=== PATIENT | male | born 1965 | race American Indian/Alaskan Native ===

== ENCOUNTER 2017-03-06 11:15 | Outpatient (CLI) | payer OTHER ==
[2017-03-06 11:46] LABS: Basophils % (Auto) 0.3 % (0.0-1.8); Eosinophils % (Auto) 1.2 % (0.0-4.3); Hematocrit 38.3 % (35.5-45.6); Hemoglobin 12.8 gm/dl (11.8-15.2); Mean Corpuscular HGB Conc 33 % (32-34); Mean Corpuscular Hemoglobin 29 pg (28-32); Mean Corpuscular Volume 86 fl (84-94); Platelet Count 262 K/mm3 (140-440); Red Blood Count 4.44 M/mm3 (3.65-5.03); Red Cell Distribution Width 14.1 % (13.2-15.2); White Blood Count 8.1 K/mm3 (4.5-11.0)
[2017-03-06 12:04] LABS: Albumin 4.4 g/dL (3.9-5); BUN/Creatinine Ratio 20.21; Calcium 10.7 mg/dL (8.4-10.2); Chloride 97.6 mmol/L (98-107); Phosphorous 4.3 mg/dL (2.5-4.5); Potassium 4.1 mmol/L (3.6-5.0)
== END 2017-03-06 11:16 | disposition home or self-care (01) ==
LOC: LAB 11:15
PROVIDERS: ATTEND Internal Medicine
DX: I12.9 Hypertensive chronic kidney disease with stage 1 through stage 4 chronic kidney disease, or unspecified chronic kidney disease (principal); N18.3 Chronic kidney disease, stage 3 (moderate); E78.4 Other hyperlipidemia; E83.52 Hypercalcemia; M10.9 Gout, unspecified; G47.37 Central sleep apnea in conditions classified elsewhere; Z94.0 Kidney transplant status
CPT/HCPCS: 36415; 80048; 82040; 84100; 85025

== ENCOUNTER 2019-01-23 06:14 | Day surgery (SDC) | payer OTHER ==
[~2019-01-23 06:14] MED LIST: ANCEF/STERILE WATER 2 GM/20 ML 2 GM/20 ML SYRINGE IV NR; NACL 0.9% 1000 ML 1,000 ML IV SCH
[2019-01-23 07:16] LABS: Basophils # (Auto) 0.1 K/mm3 (0.0-0.1); Basophils % (Auto) 0.9 % (0.0-1.8); Eosinophils # (Auto) 0.2 K/mm3 (0.0-0.4); Eosinophils % (Auto) 2.4 % (0.0-4.3); Hematocrit 37.3 % (35.5-45.6); Hemoglobin 12.6 gm/dl (11.8-15.2); Lymphocytes # (Auto) 1.7 K/mm3 (1.2-5.4); Lymphocytes % (Auto) 17.2 % (13.4-35.0); Mean Corpuscular HGB Conc 34 % (32-34); Mean Corpuscular Volume 87 fl (84-94); Monocytes % (Auto) 9.8 % (0.0-7.3); Platelet Count 236 K/mm3 (140-440); Red Blood Count 4.27 M/mm3 (3.65-5.03); Red Cell Distribution Width 14.1 % (13.2-15.2)
[2019-01-23] MEDS ORDERED: SUBLIMAZE ONE ×2 (07:24→08:42)
[2019-01-23] MEDS ORDERED: DIPRIVAN 10 MG/ML IV ONE (07:24)
[2019-01-23] MEDS ORDERED: MARCAINE 0.5% INFILTRATI ONE (07:25)
[2019-01-23] MEDS ORDERED: XYLOCAINE 1%/ EPI 1:100,000 INFILTRATI ONE ×2 (07:25→08:30)
[2019-01-23] MEDS ORDERED: SODIUM BICARBONATE ONE (07:26)
[2019-01-23] MEDS ORDERED: NACL 0.9% 500 ML 500 ML ONE (07:26)
[2019-01-23] MEDS ORDERED: HEPARIN 10,000 UNITS/10 ML ONE (07:27)
[2019-01-23 07:28] LABS: Calcium 10.2 mg/dL (8.4-10.2)
[2019-01-23] MEDS ORDERED: SUBLIMAZE IV PRN (07:30)
[2019-01-23] MEDS ORDERED: ZOFRAN IV PRN (07:30)
--- NOTE | 2019-01-23 07:31 | Anesthesia Day of Surgery ---
Anesthesia Day of Surgery - Day of Surgery Patient Examined: Yes Patient H&P Reviewed: Yes Patient is NPO: Yes Beta Blockers: Yes
[2019-01-23] MEDS ORDERED: ROBINUL ONE (07:35)
[2019-01-23] MEDS ORDERED: XYLOCAINE MPF 2% ONE (07:35)
[2019-01-23] MEDS ORDERED: QUELICIN ONE (07:35)
[2019-01-23] MEDS ORDERED: DECADRON ONE (07:35)
--- NOTE | 2019-01-23 07:35 | Anesthesia Consultation ---
Anesthesia Consult and Med Hx Date of service: 01/23/19 - Airway Anesthetic Teeth Evaluation: Chipped, Caps ROM Head & Neck: Adequate Mental/Hyoid Distance: Adequate Mallampati Class: Class II Intubation Access Assessment: Good - Pre-Operative Health Status ASA Pre-Surgery Classification: ASA3 Proposed Anesthetic Plan: General - Pulmonary Hx Sleep Apnea: Yes - Cardiovascular System Hx Hypertension: Yes - Central Nervous System Hx Psychiatric Problems: No - Gastrointestinal Hx Gastroesophageal Reflux Disease: Yes - Endocrine Hx Renal Disease: Yes (s/p Kidney TX; Last HD yesterday) Hx End Stage Renal Disease: Yes Hx 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
[2019-01-23] MEDS ORDERED: LOPRESSOR PO SCH (08:00)
[2019-01-23] MEDS ORDERED: NACL 0.9% 250ML IV ONE (08:30)
[2019-01-23] MEDS ORDERED: HEPARIN 10,000 UNITS/10 ML IV ONE (08:30)
[2019-01-23] MEDS ORDERED: SODIUM BICARBONATE IV ONE (08:30)
[2019-01-23] MEDS ORDERED: NACL 0.9% IR ONE (08:30)
--- NOTE | 2019-01-23 09:58 | Operative Report ---
Operative Report Operative Report: Date of procedure: 01/23/2019 Pre-operative diagnosis: End-stage renal disease Post-operative diagnosis: Same Procedure name(s): Creation of brachiocephalic AV fistula right arm Surgeon: Car Robbins MD Finish Repairer: None Anesthesia: Gen. EBL: Minimal Specimen(s): None Complications: None Findings: Good-quality cephalic vein excellent thrill and bruit in fistula. Palpable radial pulse post completion. Procedure: With the right arm extended the entire extremity was then prepped and draped using standard sterile technique. I then made a transverse l incision overlying the confluence cephalic vein in the volar aspect of proximal forearm and carried into the subcutaneous tissue. The cephalic vein was identified and mobilized. The vessel was considered adequate for fistula creation. Once the vein was completely mobilized and marked for rotation I then mobilized distal brachial artery at the trifurcation isolating the radial and ulnar branches with Vesseloops. The vessel was then controlled using a combination of vessel loops and DeBakey clamps and a longitudinal arteriotomy was then made over the extreme distal brachial artery. The distal end of the transected vein was then opened and an end-to-side anastomosis was then created between the 2 vessels using 6-0 Prolene suture in running technique. Prior to completion of the suture line antegrade and retrograde flushing was performed. The suture line was then completed and flow was reestablished initially into the fistula and subsequently released of the distal forearm vessels. Palpable radial pulse was documented. Strong thrill and bruit was felt in the fistula. Hemostasis was adequate. The incision was then blocked with Marcaine 0.5% plain and then closed in layers using 3-0 Vicryl subcutaneous 4-0 Monocryl subcuticular. Skin was then sealed with Dermabond equivalent patient was then returned to the supine position and then to the recovery in stable condition having tolerated the procedure well. Sponge and needle counts were correct.
--- NOTE | 2019-01-23 10:03 | Short Stay Summary ---
Short Stay Documentation Date of service: 01/23/19 Narrative H&P: Patient admitted to the operative suite for outpatient creation of a right arm AV fistula for future hemodialysis access - History H&P: obtained from office - Allergies and Medications Current Medications: Allergies No Known Allergies Allergy (Verified 01/22/19 17:02) Home Medications Medication Instructions Recorded Confirmed Last Taken Type Acetaminophen/Codeine [Tylenol 1 tab PO Q6H PRN 01/23/19 01/23/19 Unknown History /Codeine # 3 tab] Allopurinol [Zyloprim] 100 mg PO DAILY 01/23/19 01/23/19 01/22/19 09:00 History Aspirin BABY CHEW TAB 81 mg PO DAILY 01/23/19 01/23/19 01/22/19 10:00 History AtorvaSTATin 40 mg PO DAILY 01/23/19 01/23/19 01/22/19 10:00 History Clonidine HCl 0.1 mg PO DAILY 01/23/19 01/23/19 01/23/19 07:30 History Furosemide 80 mg PO DAILY 01/23/19 01/23/19 01/22/19 07:30 History Humalog 100 UNITS/ML Kwikpen 24 units SUB-Q TIDWM 01/23/19 01/23/19 01/22/19 18:00 History Insulin Detemir [Levemir] 70 unit SQ HS 01/23/19 01/23/19 Unknown History Loratadine 10 mg PO DAILY 01/23/19 01/23/19 01/22/19 10:00 History Metoprolol Xl [Metoprolol 50 mg PO DAILY 01/23/19 01/23/19 01/23/19 07:30 History SUCCINATE ER TAB] Aopmy-Nrantxt-Givhxmyf Tablet 1 tab PO DAILY 01/23/19 01/23/19 01/22/19 10:00 History Mycophenolate Mofetil 500 mg PO BID 01/23/19 01/23/19 01/23/19 07:30 History Sensipar 30 mg PO DAILY 01/23/19 01/23/19 01/22/19 10:00 History Sevelamer HCl 800 mg PO AC 01/23/19 01/23/19 01/22/19 17:00 History Sildenafil 20 mg PO PRN 01/23/19 01/23/19 Unknown History amLODIPine [Norvasc] 10 mg PO DAILY 01/23/19 01/23/19 01/22/19 09:00 History predniSONE [Deltasone] 5 mg PO DAILY 01/23/19 01/23/19 01/23/19 07:30 History Active Medications Fentanyl (Sublimaze) 50 mcg IV Q5MIN PRN PRN Reason: Pain , Severe (7-10) Stop: 01/23/19 20:00 Sodium Chloride (Nacl 0.9% 1000 Ml) 1,000 mls @ 42 mls/hr IV DIRECT ANDRIY Last Admin: 01/23/19 07:35 Dose: 42 mls/hr Documented by: Cefazolin Sodium (Ancef/Sterile Water 2 Gm/20 Ml) 2 gm in 20 mls @ 80 mls/hr IV PREOP NR; Protocol Stop: 01/23/19 23:05 Metoprolol Tartrate (Lopressor) 50 mg PO QDAY [facility] Last Admin: 01/23/19 07:40 Dose: 50 mg Documented by: Ondansetron HCl (Zofran) 4 mg IV ONCE PRN PRN Reason: Nausea And Vomiting Stop: 01/23/19 16:00 - Brief post op/procedure progress note Date of procedure: 01/23/19 Procedure: Pre-operative diagnosis: End-stage renal disease Post-operative diagnosis: Same Procedure name(s): Creation of brachiocephalic AV fistula right arm Surgeon: Car Robbins MD Crusher: None Anesthesia: Gen. EBL: Minimal Specimen(s): None Complications: None Findings: Good-quality cephalic vein excellent thrill and bruit in fistula. Palpable radial pulse post completion. Procedure: With the right arm extended the entire extremity was then prepped and draped using standard sterile technique. I then made a transverse l incision overlying the confluence cephalic vein in the volar aspect of proximal forearm and carried into the subcutaneous tissue. The cephalic vein was identified and mobilized. The vessel was considered adequate for fistula creation. Once the vein was completely mobilized and marked for rotation I then mobilized distal brachial artery at the trifurcation isolating the radial and ulnar branches with Vesseloops. The vessel was then controlled using a combination of vessel loops and DeBakey clamps and a longitudinal arteriotomy was then made over the extreme distal brachial artery. The distal end of the transected vein was then opened and an end-to-side anastomosis was then created between the 2 vessels using 6-0 Prolene suture in running technique. Prior to completion of the suture line antegrade and retrograde flushing was performed. The suture line was then completed and flow was reestablished initially into the fistula and subsequently released of the distal forearm vessels. Palpable radial pulse was documented. Strong thrill and bruit was felt in the fistula. Hemostasis was adequate. The incision was then blocked with Marcaine 0.5% plain and then closed in layers using 3-0 Vicryl subcutaneous 4-0 Monocryl subcuticular. Skin was then sealed with Dermabond equivalent patient was then returned to the supine position and then to the recovery in stable condition having tolerated the procedure well. Sponge and needle counts were correct. - Hospital course Hospital course: Unremarkable - Disposition Condition at discharge: Good Disposition: [id number] TO HOME OR SELFCARE - Discharge Diagnoses (1) End stage renal disease Status: Chronic (2) Failed kidney transplant Status: Chronic Short Stay Discharge Plan Activity: advance as tolerated Weight Bearing Status: Weight Bear as Tolerated Diet: renal Wound: keep clean and dry Special Instructions: no heavy lifting Follow up with: MARTIN BURTON MD [Primary Care Provider] - 7 Days Prescriptions: HYDROcodone/APAP 5-325 [[place] 5/325] 1 each PO Q6HR PRN #28 tablet PRN Reason: Pain, Moderate (4-6)
[2019-01-23 10:50] VITALS: BP 147/93
--- NOTE | 2019-01-23 18:04 | Post Anesthesia Evaluation ---
- Post Anesthesia Evaluation Patient Participated: Yes Airway Patent: Yes Stable Respiratory Function: Yes Nausea/Vomiting: No Temp > 96.8F: Yes Pain Manageable: Yes Adequeate Hydration: Yes Anesthesia Complications: No Block Receding Appropriately: Not Applicable Patient on Ventilator: No
== END 2019-01-23 11:30 | disposition home or self-care (01) ==
LOC: OR 06:14
PROVIDERS: ATTEND Surgery Vascular Surgery
DX: I12.0 Hypertensive chronic kidney disease with stage 5 chronic kidney disease or end stage renal disease (principal); E11.22 Type 2 diabetes mellitus with diabetic chronic kidney disease; N18.6 End stage renal disease; E78.00 Pure hypercholesterolemia, unspecified; G47.30 Sleep apnea, unspecified; K21.9 Gastro-esophageal reflux disease without esophagitis; E05.90 Thyrotoxicosis, unspecified without thyrotoxic crisis or storm; T86.12 Kidney transplant failure; Z98.890 Other specified postprocedural states; Z79.899 Other long term (current) drug therapy
CPT/HCPCS: 36415; 36821; 80048; 82962; 85025; J0330; J0690; J1644; J1720; J2405; J2704; J3010; J7030; J7040; J7050; J1100